=== PATIENT | female | born 1995 | race Caucasian/White ===

== ENCOUNTER 2018-11-17 15:19 | Emergency (ER) | payer OTHER ==
[2018-11-17 15:23] VITALS: BP 120/67; PULSE 101; TEMP 98.1; BMI 37.8
[2018-11-17] MEDS ORDERED: FAMOTIDINE 20 MG/50 ML IVPB 20 MG/50 ML MG IVPB ONE ×2 (16:21→17:39)
[2018-11-17] MEDS ORDERED: ONDANSETRON 4 MG/2 ML VIAL IVPB ONE (16:21)
[2018-11-17] MEDS ORDERED: SODIUM CHLORIDE 0.9% 500 ML INFUS.BAG IV ONE (16:21)
--- NOTE | 2018-11-17 16:22 | PDOC ---
History of Present Illness - General Chief Complaint: Respiratory Stated Complaint: FLU SYMPTOMS Time Seen by Provider: 11/17/18 15:52 History Source: Patient Exam Limitations: No Limitations - History of Present Illness Initial Comments: 11/17/18 17:33 23 yo F w/ no sig PMHx comes in c/o 2 days of generalized malaise, fever, diffuse abdominal pain, nausea, multiple episodes of NBNB vomiting 6-7 times, multiple episodes of NB diarrhea 3 times today. Also c/o diffuse chest tightnesss and diffuse non focal pounding headache which started slowly and is progressively getting worse. (+) sick contacts, daughter with similar symptoms. no recent travel. Pt did not take any meds for symptoms. 11/17/18 19:07 Past History - Past Medical History Allergies/Adverse Reactions: Allergies Allergy/AdvReac Type Severity Reaction Status Date / Time No Known Allergies Allergy Verified 11/17/18 15:23 Home Medications: Ambulatory Orders NK [No Known Home Medication] 11/17/18 COPD: No - Surgical History Cholecystectomy: Yes - Suicide/Smoking/Psychosocial Hx Smoking History: Never smoked Review of Systems - Review of Systems Able to Perform ROS?: Yes Constitutional: Yes: Fever. No: Chills, Malaise, Night Sweats HEENTM: No: Eye Pain, Recent change in vision, Throat Pain Respiratory: No: Cough, Shortness of Breath Cardiac (ROS): Yes: Chest Pain, Chest Tightness. No: Palpitations ABD/GI: Yes: Diarrhea, Nausea, Vomiting, Abdominal cramping : No: Dysuria, Hematuria Musculoskeletal: No: Back Pain Integumentary: No: Rash Neurological: Yes: Headache. No: Numbness, Dizziness Psychiatric: Yes: Change in Appetite Endocrine: No: Unexplained Weight Loss *Physical Exam - Vital Signs Last Vital Signs Temp Pulse Resp BP Pulse Ox 98.1 F 101 H 20 120/67 96 11/17/18 15:20 11/17/18 15:20 11/17/18 15:20 11/17/18 15:20 11/17/18 15:20 - Physical Exam General Appearance: Yes: Nourished. No: Apparent Distress HEENT: positive: ENRIQUE, Normal ENT Inspection, Normal Voice, Other (dry lips). negative: Pale Conjunctivae, Scleral Icterus (R), Scleral Icterus (L) Neck: positive: Supple. negative: Decreased range of motion, Tender midline Respiratory/Chest: positive: Lungs Clear, Normal Breath Sounds. negative: Respiratory Distress, Accessory Muscle Use Cardiovascular: positive: Regular Rhythm, Regular Rate Gastrointestinal/Abdominal: positive: Normal Bowel Sounds, Soft, Tenderness ( Diffuse epigastric. No tenderness at McBurney's point, (-)Rosving sign, (-) psoas sign, no CVA tenderness). negative: Tender, Decreased BS Musculoskeletal: positive: Normal Inspection. negative: CVA Tenderness, Decreased Range of Motion Extremity: positive: Normal Capillary Refill, Normal Inspection, Normal Range of Motion. negative: Tender, Pedal Edema Integumentary: positive: Normal Color, Dry. negative: Jaundice, Rash Neurologic: positive: Fully Oriented, Alert, Normal Mood/Affect Moderate Sedation - Procedure Monitoring Vital Signs: Procedure Monitoring Vital Signs Temperature 98.1 F 11/17/18 15:20 Pulse Rate 101 H 11/17/18 15:20 Respiratory Rate 20 11/17/18 15:20 Blood Pressure 120/67 11/17/18 15:20 O2 Sat by Pulse Oximetry (%) 96 11/17/18 15:20 ED Treatment Course - LABORATORY CBC & Chemistry Diagram: 11/17/18 17:31 11/17/18 17:31 Medical Decision Making - Medical Decision Making 11/17/18 17:38 23 yo F w/ NVD, abdominal pain, chest tightness, headache, loss of appetite, likely viral. IWll check for the flu, will line and lab, give fluids, pepcid, reglan/benadryl and reassess. WIll do a neb trial for chest tightness and reassess UA/UCG ordered 11/17/18 19:08 11/17/18 19:57 CHange of shift, care of patient signed over to MARA Gaines who will follow up labs, CXR and reassess *DC/Admit/Observation/Transfer Diagnosis at time of Disposition: Viral syndrome - Referrals - Patient Instructions - Post Discharge Activity
[2018-11-17] MEDS ORDERED: METOCLOPRAMIDE HCL INJECTION 10 MG/2 ML VIAL IVPUSH ONE (17:32)
[2018-11-17 17:37] LABS: BASO % 0.7 % (0-2.0); EOS % 1.1 % (0-4.5); HEMATOCRIT 41.6 % (32.4-45.2); HEMOGLOBIN 14.1 GM/dL (10.7-15.3); MCH 28.3 pg (25.7-33.7); MCHC 33.8 g/dl (32.0-36.0); MEAN CELL VOLUME 83.8 fl (80-96); MEAN PLT VOLUME 7.1 fl (7.5-11.1); MONO % 8.1 % (3.8-10.2); NEUT % 69.1 % (42.8-82.8); PLATELET COUNT 347 K/MM3 (134-434); RBC 4.96 M/mm3 (3.60-5.2); RDW 15.2 % (11.6-15.6); WHITE BLOOD COUNT 5.5 K/mm3 (4.0-10.0)
[2018-11-17] MEDS ORDERED: METOCLOPRAMIDE HCL INJECTION 10 MG/2 ML VIAL ONE (17:38)
[2018-11-17 18:00] LABS: HCG,QUALITATIVE URINE Negative
[2018-11-17 18:05] LABS: ALBUMIN 4.1 g/dl (3.4-5.0); ALK PHOS 68 U/L (45-117); ANION GAP 11 MMOL/L (8-16); BILIRUBIN,TOTAL 0.8 mg/dL (0.2-1); BLOOD UREA NITROGEN 8 mg/dL (7-18); CALCIUM 9.1 mg/dL (8.5-10.1); CHLORIDE 101 mmol/L (98-107); CO2 24 mmol/L (21-32); CREATININE 0.7 mg/dL (0.55-1.3); GLUCOSE,RANDOM 89 mg/dL (74-106); LIPASE 73 U/L (73-393); MAGNESIUM 2.2 mg/dL (1.8-2.4); POTASSIUM 3.5 mmol/L (3.5-5.1); SGOT/AST 14 U/L (15-37); SGPT/ALT 17 U/L (13-61); SODIUM 136 mmol/L (136-145); TOT PROT 8.3 g/dl (6.4-8.2)
[2018-11-17 18:15] LABS: URINE APPEARANCE SLCLOUDY; URINE BILIRUBIN NEGATIVE (<2.0 mg/dL); URINE COLOR YELLOW; URINE GLUCOSE (UA) NEGATIVE (NEGATIVE); URINE KETONE 2+ (NEGATIVE); URINE LEUK ESTERASE 3+ (NEGATIVE); URINE NITRITE NEGATIVE (NEGATIVE); URINE PROTEIN 1+ (NEGATIVE); URINE UROBILINOGEN NEGATIVE mg/dL (0.2-1.0)
[2018-11-17 18:21] LABS: EPI CELLS FEW /HPF (FEW); URINE MUCUS MANY
[2018-11-17] MEDS ORDERED: ALBUTEROL SO4 2.5/IPRATROPIUM 0.5 INH SOL 3 ML VIAL.NEB. NEB ONE (19:09)
--- NOTE | 2018-11-17 20:45 | PDOC ---
*Physical Exam - Vital Signs Last Vital Signs Temp Pulse Resp BP Pulse Ox 98.1 F 101 H 20 120/67 96 11/17/18 15:20 11/17/18 15:20 11/17/18 15:20 11/17/18 15:20 11/17/18 15:20 <Shayan Dave - Last Filed: 11/18/18 06:58> - Vital Signs Last Vital Signs Temp Pulse Resp BP Pulse Ox 98.1 F 101 H 20 120/67 96 11/17/18 15:20 11/17/18 15:20 11/17/18 15:20 11/17/18 15:20 11/17/18 15:20 <Joe Daugherty - Last Filed: 11/19/18 01:37> ED Treatment Course - LABORATORY CBC & Chemistry Diagram: 11/17/18 17:31 11/17/18 17:31 - ADDITIONAL ORDERS Additional order review: Laboratory Results 11/17/18 11/17/18 11/17/18 17:54 17:47 17:31 Sodium 136 Potassium 3.5 Chloride 101 Carbon Dioxide 24 Anion Gap 11 BUN 8 Creatinine 0.7 Creat Clearance w eGFR > 60 Random Glucose 89 Calcium 9.1 Phosphorus 3.0 Magnesium 2.2 Total Bilirubin 0.8 AST 14 L ALT 17 Alkaline Phosphatase 68 Creatine Kinase 60 49 Troponin I < 0.02 < 0.02 Total Protein 8.3 H Albumin 4.1 Lipase 73 Beta HCG, Quant < 1.0 Urine Color Yellow Urine Appearance Slcloudy Urine pH 5.0 Ur Specific [place] 1.024 Urine Protein 1+ H Urine Glucose (UA) Negative Urine Ketones 2+ H Urine Blood Negative Urine Nitrite Negative Urine Bilirubin Negative Urine Urobilinogen Negative Ur Leukocyte Esterase 3+ H Urine WBC (Auto) 6 Urine RBC (Auto) 3 Ur Epithelial Cells Few Urine Mucus Many Urine HCG, Qual Negative Blood Type Antibody Screen 11/17/18 17:31 Sodium Potassium Chloride Carbon Dioxide Anion Gap BUN Creatinine Creat Clearance w eGFR Random Glucose Calcium Phosphorus Magnesium Total Bilirubin AST ALT Alkaline Phosphatase Creatine Kinase Troponin I Total Protein Albumin Lipase Beta HCG, Quant Urine Color Urine Appearance Urine pH Ur Specific [place] Urine Protein Urine Glucose (UA) Urine Ketones Urine Blood Urine Nitrite Urine Bilirubin Urine Urobilinogen Ur Leukocyte Esterase Urine WBC (Auto) Urine RBC (Auto) Ur Epithelial Cells Urine Mucus Urine HCG, Qual Blood Type O POSITIVE Antibody Screen Negative 11/17/18 17:31 RBC 4.96 MCV 83.8 MCHC 33.8 RDW 15.2 MPV 7.1 L Neutrophils % 69.1 Lymphocytes % 21.0 Monocytes % 8.1 Eosinophils % 1.1 Basophils % 0.7 - Medications Given in the ED: ED Medications Discontinued Medications Generic Name Dose Route Start Last Admin Trade Name Freq PRN Reason Stop Dose Admin Albuterol/Ipratropium 1 amp 11/17/18 19:09 11/17/18 19:33 Duoneb - NEB 11/17/18 19:10 1 amp ONCE ONE Administration Diphenhydramine HCl 25 mg 11/17/18 17:32 11/17/18 17:53 Benadryl Injection - IVPB 11/17/18 17:33 25 mg ONCE ONE Administration Famotidine/Sodium Chloride 20 mg in 50 mls @ 100 mls/hr 11/17/18 16:21 17:53 Pepcid 20 Mg Premixed Ivpb - IVPB 11/17/18 16:50 100 mls/hr ONCE ONE Administration Metoclopramide HCl 10 mg 11/17/18 17:32 11/17/18 18:08 Reglan Injection - IVPUSH 11/17/18 17:33 10 mg ONCE ONE Administration Ondansetron HCl 8 mg 11/17/18 16:21 11/17/18 19:04 Zofran Injection IVPB 11/17/18 16:22 Not Given ONCE ONE Sodium Chloride 1,000 ml 11/17/18 16:21 11/17/18 17:53 Normal Saline - IV 11/17/18 16:22 1,000 ml ONCE ONE Administration <Shayan Dave - Last Filed: 11/18/18 06:58> - LABORATORY CBC & Chemistry Diagram: 11/17/18 17:31 11/17/18 17:31 - ADDITIONAL ORDERS Additional order review: 11/17/18 17:31 RBC 4.96 MCV 83.8 MCHC 33.8 RDW 15.2 MPV 7.1 L Neutrophils % 69.1 Lymphocytes % 21.0 Monocytes % 8.1 Eosinophils % 1.1 Basophils % 0.7 - Medications Given in the ED: ED Medications Discontinued Medications Generic Name Dose Route Start Last Admin Trade Name Freq PRN Reason Stop Dose Admin Albuterol/Ipratropium 1 amp 11/17/18 19:09 11/17/18 19:33 Duoneb - NEB 11/17/18 19:10 1 amp ONCE ONE Administration Diphenhydramine HCl 25 mg 11/17/18 17:32 11/17/18 17:53 Benadryl Injection - IVPB 11/17/18 17:33 25 mg ONCE ONE Administration Famotidine/Sodium Chloride 20 mg in 50 mls @ 100 mls/hr 11/17/18 16:21 17:53 Pepcid 20 Mg Premixed Ivpb - IVPB 11/17/18 16:50 100 mls/hr ONCE ONE Administration Metoclopramide HCl 10 mg 11/17/18 17:32 11/17/18 18:08 Reglan Injection - IVPUSH 11/17/18 17:33 10 mg ONCE ONE Administration Ondansetron HCl 8 mg 11/17/18 16:21 11/17/18 19:04 Zofran Injection IVPB 11/17/18 16:22 Not Given ONCE ONE Sodium Chloride 1,000 ml 11/17/18 16:21 11/17/18 17:53 Normal Saline - IV 11/17/18 16:22 1,000 ml ONCE ONE Administration <Joe Daugherty - Last Filed: 11/19/18 01:37> Medical Decision Making - Medical Decision Making 11/17/18 20:42 Endorsed to me to follow labs Patient seen and evaluated, has no complaints. Chest tightness resolved. p/e lung sounds clear, good air entry Chest normal heart sounds No acute findings on lab work. Influenza negative. I discussed the physical exam findings, ancillary test results and final diagnoses with the patient. I answered all of the patient's questions. The patient was satisfied with the care received and felt comfortable with the discharge plan and treatment plan. The Patient agrees to follow up with the primary care physician within 24-72 hours. 11/17/18 20:45 <Shayan Dave - Last Filed: 11/18/18 06:58> *DC/Admit/Observation/Transfer <Shayan Dave - Last Filed: 11/18/18 06:58> <Joe Daugherty - Last Filed: 11/19/18 01:37> Diagnosis at time of Disposition: Viral syndrome - Discharge Dispostion Disposition: HOME Condition at time of disposition: Stable - Referrals Referrals: Margaret Spears MD [Primary Care Provider] - - Patient Instructions Additional Instructions: Your Discharge Instructions: You must call primary care physician within 24 hours to arrange follow-up. Return to the Emergency Department with any new, persistent or worsening symptoms, for fever, chills, SOB, dizziness or any other concerning changes that may occur. - Post Discharge Activity
== END 2018-11-17 20:51 | disposition home or self-care (01) ==
LOC: JER 15:19
PROC: 3E0F7GC Introduction of Other Therapeutic Substance into Respiratory Tract, Via Natural or Artificial Opening (ICD-10-PCS; principal; 2018-11-17)
PROC: 3E033GC Introduction of Other Therapeutic Substance into Peripheral Vein, Percutaneous Approach (ICD-10-PCS; 2018-11-17)
PROC: 3E033GC Introduction of Other Therapeutic Substance into Peripheral Vein, Percutaneous Approach (ICD-10-PCS; 2018-11-17)
PROC: 3E033GC Introduction of Other Therapeutic Substance into Peripheral Vein, Percutaneous Approach (ICD-10-PCS; 2018-11-17)
DX: B34.9 Viral infection, unspecified (principal)
CPT/HCPCS: 36415; 71046-TC-FY; 80053; 81003; 81015; 82550; 83690; 83735; 84100; 84484; 84702; 84703; 85025; 86850; 86900; 86901; 87086; 87186; 87804; 99283-25